=== PATIENT | male | born 1995 | race Caucasian/White ===

== ENCOUNTER 2017-06-29 21:05 | Emergency (ER) | payer OTHER ==
[~2017-06-29] VITALS: Ht 188 cm; Wt 83.0 kg
--- NOTE | 2017-06-29 21:48 | NUR ---
DPatient discharged to home in stable conditon. Written and verbal after care instructions given. Patient verbalizes understanding of instructions. Ambulated from ER with stable gait. All belongings with patient. Ambulated from ER with stable gait.
[2017-06-29 21:51] VITALS: BP 117/69
== END 2017-06-29 21:52 | disposition home or self-care (01) ==
LOC: ER 21:06
DX: Z77.21 Contact with and (suspected) exposure to potentially hazardous body fluids (principal)
CPT/HCPCS: A4663; J0696; Q0144

== ENCOUNTER 2018-08-13 19:23 | Emergency (ER) | payer OTHER ==
[~2018-08-13] VITALS: Ht 190.5 cm; Wt 86.2 kg
--- NOTE | 2018-08-13 20:21 | NUR ---
Patient discharged to home in stable conditon. Written and verbal after care instructions given. Patient verbalizes understanding of instructions.
[2018-08-13 20:22] VITALS: BP 128/71
== END 2018-08-13 20:22 | disposition home or self-care (01) ==
LOC: ER 19:24
DX: J11.1 Influenza due to unidentified influenza virus with other respiratory manifestations (principal); F17.200 Nicotine dependence, unspecified, uncomplicated
CPT/HCPCS: A4663

== ENCOUNTER 2019-01-08 01:31 | Emergency (ER) | payer OTHER ==
[~2019-01-08] VITALS: Ht 190.5 cm; Wt 89.4 kg
[2019-01-08] MEDS ORDERED: DOK (01:38)
[2019-01-08] MEDS ORDERED: ESCITALOPRAM OXALATE 10 MG (01:38)
[2019-01-08] MEDS ORDERED: SENN25TA PO (01:39)
[2019-01-08] MEDS ORDERED: MAGNESIUM CITRATE 296 ML BOTTLE ONE (01:58)
[2019-01-08] MEDS ORDERED: MAGNESIUM HYDROXIDE 30 ML LIQUID UDC ONE (01:58)
[2019-01-08] MEDS ORDERED: MAGNESIUM HYDROXIDE 30 ML LIQUID UDC PO ONE (02:00)
[2019-01-08] MEDS ORDERED: MAGNESIUM CITRATE 296 ML BOTTLE PO ONE (02:00)
--- NOTE | 2019-01-08 02:15 | NUR ---
NO BM AFTER TAKING MEDS. PATIENT REQUEST TO GO HOME AND WAIT TO SEE STEPHANIE ESCUDERO
--- NOTE | 2019-01-08 02:21 | NUR ---
Patient discharged to home in stable conditon. Written and verbal after care instructions given. Patient verbalizes understanding of instructions. WALKED OUT OF ER WITH NO DISTRESS NOTED
[2019-01-08 02:22] VITALS: BP 135/66
== END 2019-01-08 02:22 | disposition home or self-care (01) ==
LOC: ER 01:32
DX: K59.00 Constipation, unspecified (principal); F17.200 Nicotine dependence, unspecified, uncomplicated; Z79.899 Other long term (current) drug therapy
CPT/HCPCS: A4663

== ENCOUNTER 2019-04-04 21:31 | Emergency (ER) | payer OTHER ==
[~2019-04-04] VITALS: Ht 190.5 cm; Wt 47.6 kg
[~2019-04-04 21:31] MED LIST: DOK; ESCITALOPRAM OXALATE 10 MG; SENN25TA PO
[2019-04-04] MEDS ORDERED: predniSONE 50 MG TABLET PO ONE (22:45)
[2019-04-04] MEDS ORDERED: predniSONE 50 MG TABLET ONE (22:47)
--- NOTE | 2019-04-04 23:16 | NUR ---
Patient discharged to home in stable conditon. Written and verbal after care instructions given. Patient verbalizes understanding of instructions. WALKED OUT OF ER WITH NO DISTRESS NOTED
[2019-04-04 23:20] VITALS: BP 116/75
== END 2019-04-04 23:20 | disposition home or self-care (01) ==
LOC: ER 21:31
DX: I88.9 Nonspecific lymphadenitis, unspecified (principal); F17.200 Nicotine dependence, unspecified, uncomplicated; Z79.899 Other long term (current) drug therapy
CPT/HCPCS: 36415; 86403; 87070; 99283; J7512; A4663

== ENCOUNTER 2019-04-21 00:54 | Emergency (ER) | payer OTHER ==
[~2019-04-21] VITALS: Ht 190.5 cm; Wt 90.7 kg
--- NOTE | 2019-04-21 01:00 | NUR ---
Patient ambulated with stable gait. A/Ox4. Speech is clear, speaks in complete sentences. No neuro deficits. Patient came for c/o n/v after smoking marijuana and drinking alcohol. Patient c/o having a hard time breathing, patient skin tone not indicative of poor perfusion.
[2019-04-21 01:32] LABS: CREATININE 0.8 mg/dL (0.6-1.3); POTASSIUM 3.2 mmol/L (3.5-5.1)
[2019-04-21] MEDS: IV NORMAL SALINE 1000 ML BAG IV ONE (01:32)
[2019-04-21] MEDS ORDERED: ONDANSETRON 4 MG/2 ML VIAL ONE (01:32)
[2019-04-21] MEDS: ONDANSETRON IV *ER 4 MG/2 ML VIAL IV ONE (01:34)
--- NOTE | 2019-04-21 02:33 | NUR ---
Patient discharged to home in stable conditon. Written and verbal after care instructions given. Patient verbalizes understanding of instructions. Patient ambulated with stable gait.
[2019-04-21 02:38] VITALS: BP 117/76
== END 2019-04-21 02:39 | disposition home or self-care (01) ==
LOC: ER 00:59
DX: F10.129 Alcohol abuse with intoxication, unspecified (principal); R11.2 Nausea with vomiting, unspecified; F41.9 Anxiety disorder, unspecified; F41.0 Panic disorder [episodic paroxysmal anxiety]; F17.200 Nicotine dependence, unspecified, uncomplicated; F12.10 Cannabis abuse, uncomplicated; Y90.6 Blood alcohol level of 120-199 mg/100 ml
CPT/HCPCS: 36415; 80048; 96361; 96374; 99283; G0480; J2405; A4663; J7030

== ENCOUNTER 2019-09-12 03:35 | Emergency (ER) | payer OTHER ==
[~2019-09-12] VITALS: Ht 190.5 cm; Wt 99.8 kg
--- NOTE | 2019-09-12 03:42 | NUR ---
MD AT BEDSIDE FOR HX AND PHYSICAL PT AMBULATORY, AOX4, ABLE TO SPEAK CLEAR AND COMPLETE SENTENCES C/O OF R SIDED NECK PAIN AND SORETHROAT FOR 1WK +HX OF DENTAL PROCEDURE TO R UPPER TOOTH LAST WEEK +ROOT CANAL DONE, WILL FOLLOW UP WITH DENTIST PT DENIES SOB/NVD/FEVERS/CHILLS DENIES JOINT PAIN NO APPARENT DISTRESS MONITORED ACCORDINGLY
[2019-09-12] MEDS ORDERED: IV NS 1000 ML 1,000 ML IV ONE (04:30)
[2019-09-12] MEDS ORDERED: CLINDAMYCIN PHOSPHATE IV 900 MG in IV DEXTROSE 5% 100 ML IV ONE (04:30)
[2019-09-12 04:38] LABS: BASOPHILS # (AUTO) 0.1 K/uL (0.0-8.0); BASOPHILS % (AUTO) 0.6 % (0.0-2.0); EOSINOPHILS # (AUTO) 0.1 K/uL (0.0-0.7); EOSINOPHILS % (AUTO) 1.3 % (0.0-7.0); HEMATOCRIT 49.3 % (36.7-47.1); LYMPHOCYTES # (AUTO) 1.8 K/uL (20.0-40.0); LYMPHOCYTES % (AUTO) 21.4 % (20.5-51.5); MEAN CORPUSCULAR HEMOGLOBIN 30.9 uug (23.8-33.4); MEAN CORPUSCULAR HGB CONC 34 g/dL (32.5-36.3); MEAN CORPUSCULAR VOLUME 89.8 fL (73.0-96.2); MONOCYTES # (AUTO) 0.6 K/uL (2.0-10.0); MONOCYTES % (AUTO) 6.8 % (0.0-11.0); NEUTROPHILS % (AUTO) 69.9 % (38.5-71.5); PLATELET COUNT (AUTO) 203 K/uL (152-348); RED BLOOD CELL COUNT(AUTO) 5.48 MIL/uL (4.06-5.63); WHITE BLOOD COUNT (AUTO) 8.5 K/uL (3.6-10.2)
[2019-09-12] MEDS ORDERED: CLINDAMYCIN 900MG/D5W 100ML IVPB **ER PYXIS ONLY IJ ONE (04:39)
[2019-09-12 04:43] LABS: CREATININE 0.9 mg/dL (0.6-1.3)
[2019-09-12] MEDS ORDERED: IV NORMAL SALINE 250 ML IV ONE (04:59)
[2019-09-12] MEDS ORDERED: SWABABLE VALVE TRANSFER SET EA MC ONE (04:59)
[2019-09-12] MEDS ORDERED: IOHEXOL 300MG/ML 100 ML INFUS..BTL ONE (04:59)
--- NOTE | 2019-09-12 05:22 | NUR ---
pt back from ct via wheelchair acc by [employer] resumed IVF PATENT AND INFUSING WELL TO Chhaya MONREAL [id number]
--- NOTE | 2019-09-12 06:35 | NUR ---
DC IV SALINE LOCK, DRESSED Patient discharged to home in stable conditon. Written and verbal after care instructions given. Patient verbalizes understanding of instructions. AMBULATORY W/ STABLE GAIT ALL BELONGINGS W/ PT
[2019-09-12 06:36] VITALS: BP 129/80
== END 2019-09-12 06:36 | disposition home or self-care (01) ==
LOC: ER 03:40
DX: K05.6 Periodontal disease, unspecified (principal); I88.9 Nonspecific lymphadenitis, unspecified; F41.9 Anxiety disorder, unspecified; F17.200 Nicotine dependence, unspecified, uncomplicated; F12.10 Cannabis abuse, uncomplicated
CPT/HCPCS: 36415; 70487; 80048; 85025; 96365; 99284; J3490; Q9967; A4663; J7030; J7050

== ENCOUNTER 2019-09-12 22:23 | Emergency (ER) | payer OTHER ==
[~2019-09-12] VITALS: Ht 190.5 cm; Wt 99.8 kg
[2019-09-12 23:25] LABS: BASOPHILS % (AUTO) 0.5 % (0.0-2.0); EOSINOPHILS # (AUTO) 0.2 K/uL (0.0-0.7); HEMATOCRIT 45.6 % (36.7-47.1); HEMOGLOBIN 15.3 g/dL (12.5-16.3); LYMPHOCYTES # (AUTO) 1.9 K/uL (20.0-40.0); MEAN CORPUSCULAR HEMOGLOBIN 30.6 uug (23.8-33.4); MEAN CORPUSCULAR HGB CONC 34 g/dL (32.5-36.3); MEAN CORPUSCULAR VOLUME 91.2 fL (73.0-96.2); MONOCYTES # (AUTO) 0.8 K/uL (2.0-10.0); MONOCYTES % (AUTO) 10.7 % (0.0-11.0); NEUTROPHILS # (AUTO) 4.2 K/uL (1.8-8.9); NEUTROPHILS % (AUTO) 58.8 % (38.5-71.5); PLATELET COUNT (AUTO) 193 K/uL (152-348); WHITE BLOOD COUNT (AUTO) 7.1 K/uL (3.6-10.2)
--- NOTE | 2019-09-12 23:30 | NUR ---
PATIENT WALKED INTO ER C/O RIGHT SIDE CHEST WALL PAIN WITH PAIN INCREASING WITH TAKING A DEEP BREATH WITH RIGHT FLANK PAIN THAT STARTED THIS AM.
[2019-09-12 23:34] LABS: CREATININE 0.8 mg/dL (0.6-1.3); POTASSIUM 3.8 mmol/L (3.5-5.1)
[2019-09-12 23:40] LABS: BILIRUBIN,DIRECT 0.1 mg/dL (0.0-0.2); BILIRUBIN,TOTAL 0.5 mg/dL (0.2-1.0); TOTAL PROTEIN, SERUM 6.5 g/dL (6.4-8.2)
[2019-09-13] MEDS ORDERED: ASPIRIN 325 MG TABLET ONE (01:19)
[2019-09-13] MEDS ORDERED: KETOROLAC TROMETHAMINE 30 MG INJ IVP ONE (01:30)
[2019-09-13] MEDS ORDERED: IV NS 1000 ML 1,000 ML IV ONE (01:30)
[2019-09-13] MEDS ORDERED: ASPIRIN 325 MG TABLET PO ONE (01:30)
[2019-09-13] MEDS ORDERED: IV NORMAL SALINE 250 ML IV ONE (01:33)
[2019-09-13] MEDS ORDERED: SWABABLE VALVE TRANSFER SET EA MC ONE (01:33)
[2019-09-13] MEDS ORDERED: IOHEXOL 350 100 ML INFUS..BTL ONE (01:33)
[2019-09-13] MEDS ORDERED: KETOROLAC TROMETHAMINE 30 MG INJ ONE (01:36)
--- NOTE | 2019-09-13 01:41 | NUR ---
PATIENT OUT OF UNIT FOR CTA.
--- NOTE | 2019-09-13 02:00 | NUR ---
PATIENT STATES CHEST PAIN IS 2/10 AFTER TORADOL IVP.
--- NOTE | 2019-09-13 03:24 | NUR ---
IV removed. Catheter intact and site benign. Pressure and 4x4 gauze applied to site. No bleeding noted.
--- NOTE | 2019-09-13 03:26 | NUR ---
Patient discharged to home in stable conditon. Written and verbal after care instructions given. Patient verbalizes understanding of instructions. wALKED OUT OF ER WITH NO DISTRESS NOTED.
[2019-09-13 03:27] VITALS: BP 138/84
== END 2019-09-13 03:27 | disposition home or self-care (01) ==
LOC: ER 22:23
DX: R07.89 Other chest pain (principal); R06.02 Shortness of breath; F12.10 Cannabis abuse, uncomplicated; F17.210 Nicotine dependence, cigarettes, uncomplicated
CPT/HCPCS: 36415 ×2; 71045; 71275; 80048; 80076; 84484 ×2; 85025; 85379; 87040 ×2; 93005 ×2; 96374; 99284; J1885; Q9967; 70030-TC; A4663; J7050

== ENCOUNTER 2019-10-23 21:23 | Emergency (ER) | payer OTHER ==
[~2019-10-23] VITALS: Ht 190.5 cm; Wt 99.8 kg
[2019-10-23] MEDS ORDERED: IV NORMAL SALINE 1000 ML BAG IV ONE ×2 (21:45→22:00)
[2019-10-23] MEDS ORDERED: HYDROMORPHONE 1 MG/1 ML DISP.SYRIN IV ONE (21:45)
[2019-10-23] MEDS ORDERED: ONDANSETRON 4 MG/2 ML VIAL IV ONE ×2 (21:45→22:30)
[2019-10-23] MEDS ORDERED: PANTOPRAZOLE SODIUM 40 MG VIAL IV ONE (21:45)
[2019-10-23] MEDS ORDERED: HYDROMORPHONE 1 MG/1 ML DISP.SYRIN ONE (21:49)
[2019-10-23] MEDS ORDERED: ONDANSETRON 4 MG/2 ML VIAL ONE ×2 (21:49→22:30)
[2019-10-23] MEDS ORDERED: PANTOPRAZOLE SODIUM 40 MG VIAL ONE (21:49)
[2019-10-23 21:51] LABS: BASOPHILS # (AUTO) 0.1 K/uL (0.0-8.0); BASOPHILS % (AUTO) 1.1 % (0.0-2.0); EOSINOPHILS % (AUTO) 0.4 % (0.0-7.0); HEMATOCRIT 48.8 % (36.7-47.1); HEMOGLOBIN 16.8 g/dL (12.5-16.3); LYMPHOCYTES # (AUTO) 1.3 K/uL (20.0-40.0); LYMPHOCYTES % (AUTO) 22.4 % (20.5-51.5); MEAN CORPUSCULAR HEMOGLOBIN 31.2 uug (23.8-33.4); MEAN CORPUSCULAR HGB CONC 34 g/dL (32.5-36.3); MEAN CORPUSCULAR VOLUME 90.6 fL (73.0-96.2); MONOCYTES # (AUTO) 0.4 K/uL (2.0-10.0); NEUTROPHILS # (AUTO) 4.1 K/uL (1.8-8.9); NEUTROPHILS % (AUTO) 70.1 % (38.5-71.5); PLATELET COUNT (AUTO) 170 K/uL (152-348); RED BLOOD CELL COUNT(AUTO) 5.38 MIL/uL (4.06-5.63); WHITE BLOOD COUNT (AUTO) 5.8 K/uL (3.6-10.2)
[2019-10-23 22:08] LABS: BILIRUBIN,TOTAL 0.7 mg/dL (0.1-1.0); CREATININE 0.8 mg/dL (0.6-1.3); POTASSIUM 3.7 mmol/L (3.5-5.1)
[2019-10-23 22:09] LABS: BILIRUBIN,DIRECT 0.1 mg/dL (0.0-0.2); TOTAL PROTEIN, SERUM 7.4 g/dL (6.4-8.2)
[2019-10-23] MEDS ORDERED: LORAZEPAM 2 MG/1 ML VIAL IV ONE (22:30)
--- NOTE | 2019-10-23 22:30 | NUR ---
Patient states pain is 2/10. No distress noted.
[2019-10-23] MEDS ORDERED: LORAZEPAM 2 MG/1 ML VIAL ONE (22:31)
--- NOTE | 2019-10-23 22:35 | NUR ---
Patient C/O anxiety. Dr Armstrong into re eval patient.
--- NOTE | 2019-10-23 22:41 | NUR ---
IV removed. Catheter intact and site benign. Pressure and 4x4 gauze applied to site. No bleeding noted.
--- NOTE | 2019-10-23 22:42 | NUR ---
Patient discharged to home in stable conditon with friend taking patient home. Written and verbal after care instructions given. Patient verbalizes understanding of instructions. Walked out of ER with no distress noted.
[2019-10-23 22:43] VITALS: BP 125/68
== END 2019-10-23 22:44 | disposition home or self-care (01) ==
LOC: ER 21:27
DX: K29.70 Gastritis, unspecified, without bleeding (principal); F17.200 Nicotine dependence, unspecified, uncomplicated; F12.10 Cannabis abuse, uncomplicated
CPT/HCPCS: 36415; 80048; 80076; 83690; 85025; 96361; 96374; 96375; 99283; C9113; J1170; J2060; J2405 ×2; A4663; J7030

== ENCOUNTER 2019-11-13 12:15 | Emergency (ER) | payer OTHER ==
[~2019-11-13] VITALS: Ht 190.5 cm; Wt 99.8 kg
--- NOTE | 2019-11-13 12:48 | NUR ---
Patient presents to ER for c/o of headache sorethroat, sneezing and intermittent coughing, dizziness and weakness x 2 days. Patient states he feels like he has the cold. Patient denies shortness of breath. Lung sounds clear to auscultation bilaterally. No acute distress.
--- NOTE | 2019-11-13 12:50 | NUR ---
Seen and examined by Dr. Armstrong
[2019-11-13] MEDS ORDERED: AZITHROMYCIN 250 MG TABLET PO ONE (13:30)
[2019-11-13] MEDS ORDERED: AZITHROMYCIN 250 MG TABLET ONE (13:35)
--- NOTE | 2019-11-13 13:38 | NUR ---
Patient discharged to home in stable condition. Written and verbal after care instructions given. Patient verbalizes understanding of instructions.
[2019-11-13 13:39] VITALS: BP 147/71
== END 2019-11-13 13:40 | disposition home or self-care (01) ==
LOC: ER 12:18
DX: J06.9 Acute upper respiratory infection, unspecified (principal); F17.200 Nicotine dependence, unspecified, uncomplicated; F12.10 Cannabis abuse, uncomplicated
CPT/HCPCS: 36415; 86403; 87070; 87400; A4663; Q0144

== ENCOUNTER 2019-11-14 21:17 | Emergency (ER) | payer OTHER ==
[~2019-11-14] VITALS: Ht 190.5 cm; Wt 99.8 kg
--- NOTE | 2019-11-14 21:56 | NUR ---
Dr. Turner at bedside for MSE
[2019-11-14] MEDS ORDERED: PANTOPRAZOLE SODIUM 40 MG TABLET.DR PO ONE ×2 (22:00→22:06)
[2019-11-14] MEDS ORDERED: ONDANSETRON ODT 4 MG TAB.RAPDIS SL ONE (22:00)
[2019-11-14] MEDS ORDERED: ONDANSETRON ODT 4 MG TAB.RAPDIS ONE (22:06)
--- NOTE | 2019-11-14 22:12 | NUR ---
Patient discharged to home in stable conditon. Written and verbal after care instructions given. Patient verbalizes understanding of instructions. Patient ambulating with steady gait
[2019-11-14 22:13] VITALS: BP 114/82
== END 2019-11-14 22:12 | disposition home or self-care (01) ==
LOC: ER 21:18
DX: R11.10 Vomiting, unspecified (principal); F10.10 Alcohol abuse, uncomplicated; F17.200 Nicotine dependence, unspecified, uncomplicated; F12.10 Cannabis abuse, uncomplicated
CPT/HCPCS: A4663; Q0162

== ENCOUNTER 2019-11-26 11:56 | Emergency (ER) | payer OTHER ==
[~2019-11-26] VITALS: Ht 190.5 cm; Wt 99.8 kg
[2019-11-26] MEDS ORDERED: LIDOCAINE VISCUS 2% 15 ML UDC MM ONE (13:00)
[2019-11-26] MEDS ORDERED: MAG HYDROX/AL HYDROX/SIMETH 30 ML LIQUID UDC PO ONE (13:00)
[2019-11-26] MEDS ORDERED: MAG HYDROX/AL HYDROX/SIMETH 30 ML LIQUID UDC ONE (13:04)
[2019-11-26] MEDS ORDERED: LIDOCAINE VISCUS 2% 15 ML UDC ONE (13:04)
[2019-11-26 13:07] LABS: POTASSIUM 4.1 mmol/L (3.5-5.1)
[2019-11-26 13:13] LABS: BILIRUBIN,DIRECT 0.2 mg/dL (0.0-0.2); BILIRUBIN,TOTAL 0.8 mg/dL (0.2-1.0); TOTAL PROTEIN, SERUM 7.5 g/dL (6.4-8.2)
[2019-11-26 13:20] LABS: *BILIRUBIN,URIN NEGATIVE (NEGATIVE); *BLOOD, URINE NEGATIVE (NEGATIVE); *CLARITY,URINE CLEAR (CLEAR); *COLOR,URINE YELLOW (YELLOW); *KETONES,URINE NEGATIVE (NEGATIVE); LEUKOCYTE ESTERASE ,URINE NEGATIVE (NEGATIVE); NITRITE, URINE NEGATIVE (NEGATIVE); UGLUCOSE NEGATIVE (NEGATIVE)
[2019-11-26 13:30] LABS: BASOPHILS % (AUTO) 0.4 % (0.0-2.0); EOSINOPHILS # (AUTO) 0.1 K/uL (0.0-0.7); EOSINOPHILS % (AUTO) 1.7 % (0.0-7.0); HEMATOCRIT 47.5 % (36.7-47.1); HEMOGLOBIN 16.4 g/dL (12.5-16.3); LYMPHOCYTES # (AUTO) 1.7 K/uL (20.0-40.0); LYMPHOCYTES % (AUTO) 23.5 % (20.5-51.5); MEAN CORPUSCULAR HEMOGLOBIN 31.1 uug (23.8-33.4); MEAN CORPUSCULAR HGB CONC 35 g/dL (32.5-36.3); MEAN CORPUSCULAR VOLUME 89.8 fL (73.0-96.2); MONOCYTES # (AUTO) 0.6 K/uL (2.0-10.0); MONOCYTES % (AUTO) 8.4 % (0.0-11.0); NEUTROPHILS # (AUTO) 4.7 K/uL (1.8-8.9); PLATELET COUNT (AUTO) 191 K/uL (152-348); RED BLOOD CELL COUNT(AUTO) 5.29 MIL/uL (4.06-5.63); WHITE BLOOD COUNT (AUTO) 7.1 K/uL (3.6-10.2)
[2019-11-26 13:40] LABS: BACTERIA,URINE NONE SEEN /HPF (NONE SEEN); RBC,URINE 0-3 /HPF (0-3); SQUAMOUS EPITHELIAL CELL,UR FEW /HPF (NONE SEEN); URINE AMORPHOUS PHOSPHATES FEW /HPF; WBC,URINE 0-3 /HPF (0-3)
--- NOTE | 2019-11-26 14:28 | NUR ---
DR Alonso at bedside made patient aware of test results. Will be DC home.
--- NOTE | 2019-11-26 14:30 | NUR ---
Patient discharged to home in stable condition. Written and verbal after care instructions given. Patient verbalizes understanding of instructions.
[2019-11-26 14:33] VITALS: BP 115/75
== END 2019-11-26 14:34 | disposition home or self-care (01) ==
LOC: ER 12:00
DX: K29.60 Other gastritis without bleeding (principal); F17.200 Nicotine dependence, unspecified, uncomplicated
CPT/HCPCS: 36415; 83690; 85025; A4663

== ENCOUNTER 2020-01-18 12:20 | Emergency (ER) | payer SELFPAY ==
[~2020-01-18] VITALS: Ht 190.5 cm; Wt 99.8 kg
[2020-01-18 12:39] LABS: *BILIRUBIN,URIN 1+ (NEGATIVE); *CLARITY,URINE CLEAR (CLEAR); *COLOR,URINE YELLOW (YELLOW); *KETONES,URINE 2+ (NEGATIVE); *UROBILINOGEN,URINE 0.2 E.U./dl (NORMAL); LEUKOCYTE ESTERASE ,URINE NEGATIVE (NEGATIVE); NITRITE, URINE NEGATIVE (NEGATIVE); UGLUCOSE NEGATIVE (NEGATIVE)
[2020-01-18 12:40] LABS: *BLOOD, URINE TRACE INTACT (NEGATIVE)
[2020-01-18 12:47] LABS: MUCUS,URINE FEW /LPF (0-FEW)
[2020-01-18 12:48] LABS: BACTERIA,URINE NONE SEEN /HPF (NONE SEEN); RBC,URINE 0-3 /HPF (0-3); SQUAMOUS EPITHELIAL CELL,UR NONE SEEN /HPF (NONE SEEN); WBC,URINE NONE SEEN /HPF (0-3)
[2020-01-18 12:58] LABS: BASOPHILS # (AUTO) 0.1 K/uL (0.0-8.0); BASOPHILS % (AUTO) 0.5 % (0.0-2.0); EOSINOPHILS # (AUTO) 0.1 K/uL (0.0-0.7); EOSINOPHILS % (AUTO) 0.8 % (0.0-7.0); HEMATOCRIT 44.4 % (36.7-47.1); HEMOGLOBIN 15.3 g/dL (12.5-16.3); LYMPHOCYTES # (AUTO) 1.8 K/uL (20.0-40.0); LYMPHOCYTES % (AUTO) 17.3 % (20.5-51.5); MEAN CORPUSCULAR HEMOGLOBIN 30.6 uug (23.8-33.4); MEAN CORPUSCULAR HGB CONC 34 g/dL (32.5-36.3); MONOCYTES # (AUTO) 1.1 K/uL (2.0-10.0); MONOCYTES % (AUTO) 10.3 % (0.0-11.0); NEUTROPHILS # (AUTO) 7.5 K/uL (1.8-8.9); NEUTROPHILS % (AUTO) 71.1 % (38.5-71.5); PLATELET COUNT (AUTO) 226 K/uL (152-348); RED BLOOD CELL COUNT(AUTO) 4.99 MIL/uL (4.06-5.63); WHITE BLOOD COUNT (AUTO) 10.5 K/uL (3.6-10.2)
[2020-01-18 13:05] LABS: BILIRUBIN,DIRECT 0.2 mg/dL (0.0-0.2); CREATININE 1.1 mg/dL (0.6-1.3); POTASSIUM 4.4 mmol/L (3.5-5.1); TOTAL PROTEIN, SERUM 7.9 g/dL (6.4-8.2)
--- NOTE | 2020-01-18 13:35 | NUR ---
Patient discharged to home in stable condition. Written and verbal after care instructions given. Patient verbalizes understanding of instructions. Stressed follow up or return to ER for worsening s/s.
== END 2020-01-18 13:40 | disposition home or self-care (01) ==
LOC: ER 12:20
DX: R10.13 Epigastric pain (principal)
CPT/HCPCS: 36415; 83690; 85025

== ENCOUNTER 2021-06-28 14:16 | Emergency (ER) | payer OTHER ==
[~2021-06-28] VITALS: Ht 190.5 cm; Wt 122.5 kg
--- NOTE | 2021-06-28 14:35 | NUR ---
Attempted to triage pt, pt was not found in ER waiting room or outside ER.
--- NOTE | 2021-06-28 15:10 | NUR ---
COVID 19 and flu swab collected and sent to LAB.
--- NOTE | 2021-06-28 16:50 | NUR ---
Pt ambulated with no SOB or resp distress noted, pulse ox= 97% post ambulation.
[2021-06-28 17:18] VITALS: BP 120/78
== END 2021-06-28 17:18 | disposition home or self-care (01) ==
LOC: ER 14:16
DX: U07.1 COVID-19 (principal)
CPT/HCPCS: 87400; A4663

== ENCOUNTER 2021-08-08 15:38 | Emergency (ER) | payer OTHER ==
[~2021-08-08] VITALS: Ht 188 cm; Wt 118.8 kg
--- NOTE | 2021-08-08 15:54 | NUR ---
PT WAS TRIAGED AND PLACED IN WAITING ROOM. NO AVAILABLE ER BEDS AT THIS TIME.
--- NOTE | 2021-08-08 18:19 | NUR ---
PT ELOPED AFTER HE RECEIVED RESULTS OF LAB WORK AN X-RAY RESULTS. DR DIAZ NOTIFIED.
== END 2021-08-08 18:22 | disposition left against medical advice (07) ==
LOC: ER 15:38
DX: J02.9 Acute pharyngitis, unspecified (principal); Z20.822 Contact with and (suspected) exposure to COVID-19; Z86.16 Personal history of COVID-19; Z87.19 Personal history of other diseases of the digestive system; Z53.29 Procedure and treatment not carried out because of patient's decision for other reasons
CPT/HCPCS: 71045; A4663